=== PATIENT | male | born 1980 | race Two or more races ===

== ENCOUNTER 2019-08-04 09:45 | Inpatient (IN) | payer OTHER | END 2019-08-05 09:45 | disposition left against medical advice (07) | LOC: ER 09:45 → TELE 09:46 → TELE-CENTR 15:30 | DX: I24.9 Acute ischemic heart disease, unspecified (principal); I16.9 Hypertensive crisis, unspecified; D68.59 Other primary thrombophilia; E66.9 Obesity, unspecified ==